=== PATIENT | female | born 1955 | race Caucasian/White ===

== ENCOUNTER 2017-07-04 20:41 | Emergency (ER) | payer OTHER ==
--- NOTE | 2017-07-04 20:51 | UC ---
UC Dental HPI - HPI Summary HPI Summary: 61 YEAR OLD FEMALE PRESENTS WITH COMPLAINS OF LEFT SIDED JAW/FACIAL SWELLING. - History of Current Complaint Stated Complaint: FACIAL PAIN/SWELLING LEFT SIDE Time Seen by Provider: 07/04/17 20:50 Hx Obtained From: Patient Onset/Duration: Sudden Onset, Lasting Days Severity: Moderate Pain Scale Used: 0-10 Numeric - 5 - Allergies/Home Medications Allergies/Adverse Reactions: Allergies Allergy/AdvReac Type Severity Reaction Status Date / Time Amoxicillin Allergy Rash Verified 07/04/17 20:54 Propoxyphene [From Darvon] Allergy Dizziness Verified 07/04/17 20:54 Home Medications: Home Medications Clindamycin Cap(NF) [Clindamycin Cap 300 mg Cap(NF)] 300 mg PO TID 07/04/17 [ History Confirmed 07/04/17] Ethosuximide CAP* [Zarontin CAP*] 250 mg PO DAILY 07/04/17 [History Confirmed ] Losartan TAB* [Cozaar TAB*] 25 mg PO DAILY 07/04/17 [History Confirmed 07/04/17] PHENobarbital TAB(*) 30 mg PO BEDTIME 07/04/17 [History Confirmed 07/04/17] PMH/Surg Hx/FS Hx/Imm Hx Previously Healthy: Yes Review of Systems Constitutional: Negative Skin: Negative Eyes: Negative ENT: Dental Pain Respiratory: Negative Cardiovascular: Negative Gastrointestinal: Negative Genitourinary: Negative Motor: Negative Neurovascular: Negative Musculoskeletal: Negative Neurological: Negative Psychological: Negative All Other Systems Reviewed And Are Negative: Yes Physical Exam Triage Information Reviewed: Yes Eye Exam: Normal ENT Exam: Normal Dental: Positive: Abscess @ Neck exam: Normal Neck: Positive: 1 Respiratory Exam: Normal Cardiovascular Exam: Normal Abdominal Exam: Normal Musculoskeletal Exam: Normal Neurological Exam: Normal Psychological Exam: Normal Skin Exam: Normal Dental Complaint Course/Dx - Differential Dx/Diagnosis Provider Diagnoses: DENTAL ABSCESS Discharge - Discharge Plan Condition: Stable Disposition: HOME Prescriptions: Chlorhexidine MW 0.12% 473ML* [Peridex Mouth Wash 0.12%*] 15 ml MT TID PC #1 btl Naproxen [Naprosyn 500 mg] 500 mg PO BID #30 tab Patient Education Materials: Dental Abscess (ED) Referrals: No Primary Care Phys,NOPCP [Primary Care Provider] -
[2017-07-04 20:54] VITALS: BP 130/79
[2017-07-04] MEDS ORDERED: DOXYcycline CAP(*) 100 MG PO ONE (21:10)
[2017-07-04] MEDS ORDERED: Naproxen TAB* 250 MG PO ONE (21:11)
== END 2017-07-04 21:33 | disposition home or self-care (01) ==
LOC: UCCORT 20:41
DX: K04.7 Periapical abscess without sinus (principal); Z88.1 Allergy status to other antibiotic agents
CPT/HCPCS: 99202; A9270-GY; G0463

== ENCOUNTER 2017-11-12 11:41 | Emergency (ER) | payer OTHER ==
--- NOTE | 2017-11-12 12:42 | UC ---
Respiratory Complaint HPI - HPI Summary HPI Summary: Subjective fever, cough with green sputum, history of COPD feels the the Bronchitis she gets a couple of times a year - History of Current Complaint Chief Complaint: UCRespiratory Stated Complaint: ST/COUGH Time Seen by Provider: 11/12/17 12:36 Hx Obtained From: Patient ?: No Onset/Duration: Gradual Onset, Lasting Days, Still Present Timing: Constant Severity Initially: Moderate Severity Currently: Moderate Character: Cough: Productive, Sputum Description: - green Aggravating Factors: Nothing Alleviating Factors: Nothing Associated Signs And Symptoms: Positive: Chills, URI, Nasal Congestion - Allergies/Home Medications Allergies/Adverse Reactions: Allergies Allergy/AdvReac Type Severity Reaction Status Date / Time Amoxicillin Allergy Rash Verified 11/12/17 12:16 Propoxyphene [From Darvon] Allergy Dizziness Verified 11/12/17 12:16 Home Medications: Home Medications Tiotropium CAP.INH* [Spiriva CAP.INH*] 1 inh DAILY 11/12/17 [History Confirmed 11/12/17] PMH/Surg Hx/FS Hx/Imm Hx Previously Healthy: No Cardiovascular History: Hypertension Respiratory History: COPD - Surgical History Surgical History: Yes Surgery Procedure, Year, and Place: tonsilectomy - Family History Known Family History: Positive: None - Social History Occupation: Employed Full-time Lives: With Family Alcohol Use: None Substance Use Type: None Smoking Status (MU): Former Smoker Type: Cigarettes Have You Smoked in the Last Year: No When Did the Patient Quit Smoking/Using Tobacco: 2013 - Immunization History Most Recent Influenza Vaccination: no Review of Systems Constitutional: Chills, Fatigue Skin: Negative Eyes: Negative ENT: Nasal Discharge Respiratory: Cough Cardiovascular: Negative Gastrointestinal: Negative Genitourinary: Negative Motor: Negative Neurovascular: Negative Musculoskeletal: Negative Neurological: Negative Psychological: Negative Is Patient Immunocompromised?: No All Other Systems Reviewed And Are Negative: Yes Physical Exam Triage Information Reviewed: Yes Appearance: Well-Nourished, Ill-Appearing - mild, Pain Distress - mild Vital Signs: Initial Vital Signs Temp 98.1 F 11/12/17 12:17 Pulse 107 11/12/17 12:17 Resp 16 11/12/17 12:17 BP 170/91 11/12/17 12:17 Pulse Ox 97 11/12/17 12:17 Vital Signs Reviewed: Yes Eye Exam: Normal Eyes: Positive: Conjunctiva Clear ENT Exam: Normal ENT: Positive: Normal ENT inspection, Hearing grossly normal, Pharynx normal, Nasal congestion, TMs normal, Uvula midline. Negative: Tonsillar swelling, Tonsillar exudate, Trismus, Muffled voice, Hoarse voice, Dental tenderness, Sinus tenderness Dental Exam: Normal Neck exam: Normal Neck: Positive: Supple, Nontender, No Lymphadenopathy Respiratory Exam: Normal Respiratory: Positive: Chest non-tender, Lungs clear, Normal breath sounds, No respiratory distress, No accessory muscle use Cardiovascular Exam: Normal Cardiovascular: Positive: RRR, No Murmur, Pulses Normal, Brisk Capillary Refill Musculoskeletal Exam: Normal Musculoskeletal: Positive: Strength Intact, ROM Intact, No Edema Neurological Exam: Normal Neurological: Positive: Alert, Muscle Tone Normal Psychological Exam: Normal Skin Exam: Normal UC Diagnostic Evaluation - Laboratory O2 Sat by Pulse Oximetry: 97 Respiratory Course/Dx - Course Course Of Treatment: zithromax, robitussin and codiene, tessalon, increase fluids, follow with pcp - Differential Dx/Diagnosis Provider Diagnoses: HYpertension in poor control, Bronchitis Discharge - Discharge Plan Condition: Stable Disposition: HOME Prescriptions: Albuterol HFA INHALER* [Ventolin HFA Inhaler*] 2 puff INH Q6H PRN #1 mdi PRN Reason: cough Azithromycin TAB* [Zithromax TAB (Z-CHARLENE) 250 mg #6 tabs] 2 tab PO .TODAY, THEN 1 DAILY #1 charlene Guaifenesin-Codeine [Guaiatussin AC] 5 - 10 syp PO QID #90 syp MDD 40ml Patient Education Materials: How to Use a Metered-Dose Inhaler (ED), Acute Bronchitis (ED), DASH Eating Plan (ED), Hypertension (ED) Forms: *Gen. Provider Communication, *Work Release Referrals: Areli Solo MD [Medical Doctor] -
[2017-11-12 13:11] VITALS: BP 172/85
== END 2017-11-12 13:10 | disposition home or self-care (01) ==
LOC: UCCORT 11:41
DX: I10 Essential (primary) hypertension (principal); J40 Bronchitis, not specified as acute or chronic; Z87.891 Personal history of nicotine dependence
CPT/HCPCS: 99212; G0463

== ENCOUNTER 2018-08-23 12:34 | Emergency (ER) | payer OTHER ==
[2018-08-23 12:54] VITALS: BP 151/95
[2018-08-23] MEDS ORDERED: Albuterol 2.5 MG/3 ML NEB.SOL* (0.083%) INH ONE (13:06)
--- NOTE | 2018-08-23 13:37 | RAD ---
INDICATION: Cough, dyspnea. COPD. Prior tobacco use. History of bronchitis. COMPARISON: No relevant prior exams available on the [facility] [place] [place] PACS for comparison. TECHNIQUE: Dual energy PA and routine lateral views of the chest were obtained. REPORT: Mild linear subsegmental atelectasis at the lung bases. Negative for pleural effusion or pneumothorax. The heart, pulmonary vasculature, and mediastinal contours are unremarkable. Mild thoracic degenerative spondylosis. IMPRESSION: #. Stigmata of obstructive lung disease. #. Very mild basilar atelectasis.
--- NOTE | 2018-08-24 08:40 | UC ---
- Progress Note Progress Note: Patient Name: JACQUELIN FOREMAN Medical Record#: [id number] Ordering Physician: Yousuf Lawson MD Acct.#: [id number] : 1955 Age: 62 Sex: F [place] [facility] [place]: 08/23/18 1306 ADM Status: REG ER Order Information: CHEST PA & LAT 2 VWS Accession Number: [id number] CPT: 60194 INDICATION: Cough, dyspnea. COPD. Prior tobacco use. History of bronchitis. COMPARISON: No relevant prior exams available on the [facility] [place] for comparison. TECHNIQUE: Dual energy PA and routine lateral views of the chest were obtained. REPORT: Mild linear subsegmental atelectasis at the lung bases. Negative for pleural effusion or pneumothorax. The heart, pulmonary vasculature, and mediastinal contours are unremarkable. Mild thoracic degenerative spondylosis. IMPRESSION: #. Stigmata of obstructive lung disease. #. Very mild basilar atelectasis. <Electronically signed by Veto Mason MD in OV> 08/23/181332 Dictated By: Veto Mason MD Dictated Date/Time: 08/23/181332 Transcribed Date/Time: 08/23/181331 Copy to: CC:Jolynn Mcgregor MD; Yousuf Lawson MD Imaging - [facility] Imaging [facility] Urgent [facility] [address] [address] ph ([phone]) ph ([phone]) ph ([phone]) This report is only to be considered final once signed by the Provider(s) as displayed in the "<Electronically Signed by >" field (s). Absence of a signature indicates the report is in a draft status and still needs to be finalized. In the event this document was created by someone other than the signing Provider, the individual initiating the document will be listed in the "Entered by:" or "Dictated by:" esparza. 1 of 1 Discharge - Sign-Out/Discharge Documenting (check all that apply): Post-Discharge Follow Up All imaging exams completed and their final reports reviewed: Yes - Discharge Plan Condition: Good Disposition: HOME Prescriptions: Azithromycin TAB* [Zithromax TAB (Z-CHARLENE) 250 mg #6 tabs] 2 tab PO .TODAY, THEN 1 DAILY #1 charlene Patient Education Materials: Acute Bronchitis (ED) Forms: *Work Release Referrals: Jolynn Mcgregor MD [Primary Care Provider] - - Billing Disposition and Condition Condition: GOOD Disposition: Home
== END 2018-08-23 13:59 | disposition home or self-care (01) ==
LOC: UCCORT 12:34
DX: J06.9 Acute upper respiratory infection, unspecified (principal); J44.9 Chronic obstructive pulmonary disease, unspecified; F32.9 Major depressive disorder, single episode, unspecified; Z88.0 Allergy status to penicillin; Z87.891 Personal history of nicotine dependence
CPT/HCPCS: 71046; 99212; G0463

== ENCOUNTER 2019-03-06 16:27 | Emergency (ER) | payer OTHER ==
[2019-03-06 16:45] VITALS: BP 154/100
--- NOTE | 2019-03-06 16:58 | ED ---
Respiratory - HPI Summary HPI Summary: 63 yr old female with the complaint of runny nose, itchy ears, sore throat, and coughing. She is concerned that she has pneumonia. She had onset of coughing and symptoms yesterday. No fever. SHe has COPD and has chronic shortness of breath. - History of Current Complaint Chief Complaint: UCRespiratory Stated Complaint: CONGESTION,LUNGS HURT,ST Time Seen by Provider: 03/06/19 16:46 Pain Intensity: 0 - Allergy/Home Medications Allergies/Adverse Reactions: Allergies Allergy/AdvReac Type Severity Reaction Status Date / Time amoxicillin Allergy Unknown Rash Verified 03/06/19 16:39 propoxyphene [From Darvon] Allergy Unknown dizzy Verified 03/06/19 16:39 PMH/Surg Hx/FS Hx/Imm Hx Cardiovascular History: Reports: Hx Hypertension Respiratory History: Reports: Hx Asthma, Hx Chronic Obstructive Pulmonary Disease (COPD) - Surgical History Surgery Procedure, Year, and Place: Tonsillectomy Infectious Disease History: No Infectious Disease History: Denies: Traveled Outside the [place] in Last 30 Days - Family History Known Family History: Positive: None - Social History Alcohol Use: None Substance Use Type: Reports: None Smoking Status (MU): Former Smoker Type: Cigarettes Length of Time of Smoking/Using Tobacco: 1 1/2 - 2 PPD x 40 Years Have You Smoked in the Last Year: No Review of Systems Constitutional: Negative Positive: Sore Throat, Ear Ache, Nasal Discharge Positive: Shortness Of Breath, Cough All Other Systems Reviewed And Are Negative: Yes Physical Exam Triage Information Reviewed: Yes Vital Signs On Initial Exam: Initial Vitals Temp Pulse Resp BP Pulse Ox 99.7 F 132 24 154/100 94 03/06/19 16:36 03/06/19 16:36 03/06/19 16:36 03/06/19 16:36 03/06/19 16:36 Vital Signs Reviewed: Yes Appearance: Positive: Well-Appearing, No Pain Distress Skin: Positive: Warm, Skin Color Reflects Adequate Perfusion Head/Face: Positive: Normal Head/Face Inspection Eyes: Positive: EOMI ENT: Positive: Pharynx normal, Nasal congestion, TM red - right. Negative: Muffled voice, Hoarse voice Neck: Positive: Supple, Nontender Respiratory/Lung Sounds: Positive: Clear to Auscultation, Breath Sounds Present Cardiovascular: Positive: RRR. Negative: Murmur Abdomen Description: Negative: Distended Musculoskeletal: Positive: Strength/ROM Intact Neurological: Positive: Sensory/Motor Intact, Alert, Oriented to Person Place, Time, CN Intact II-III, Normal Gait, Speech Normal Psychiatric: Positive: Normal - Louisa Coma Scale Best Eye Response: 4 - Spontaneous Best Motor Response: 6 - Obeys Commands Best Verbal Response: 5 - Oriented Coma Scale Total: 15 Diagnostics - Vital Signs Vital Signs Temp Pulse Resp BP Pulse Ox 03/06/19 16:36 99.7 F 132 24 154/100 94 - Laboratory Lab Statement: Any lab studies that have been ordered have been reviewed, and results considered in the medical decision making process. - Radiology chest xray pa lat Radiology Interpretation Completed By: Radiologist - ANNI Disposition - Course Course Of Treatment: 63 yr old with coughing, URI symptoms - Diagnoses Provider Diagnoses: Otitis media, Upper respiratory infection Discharge - Sign-Out/Discharge Documenting (check all that apply): Patient Departure All imaging exams completed and their final reports reviewed: Yes - Discharge Plan Condition: Good Disposition: HOME Prescriptions: Clarithromycin TAB* [Biaxin 500 MG TAB*] 500 mg PO BID #20 tab Patient Education Materials: Ear Infection (ED), Upper Respiratory Infection ( ED), Hypertension (ED) Referrals: No Primary Care Phys,NOPCP [Primary Care Provider] - [facility] [place] - 3 Days - Billing Disposition and Condition Condition: GOOD Disposition: Home
== END 2019-03-06 17:43 | disposition home or self-care (01) ==
LOC: UCCORT 16:27
DX: H66.90 Otitis media, unspecified, unspecified ear (principal); J06.9 Acute upper respiratory infection, unspecified; I10 Essential (primary) hypertension; J44.9 Chronic obstructive pulmonary disease, unspecified; Z87.891 Personal history of nicotine dependence; Z88.3 Allergy status to other anti-infective agents
CPT/HCPCS: 71046; 99212; G0463

== ENCOUNTER 2019-03-12 12:08 | Emergency (ER) | payer OTHER ==
[2019-03-12 12:51] VITALS: BP 140/94
--- NOTE | 2019-03-12 13:00 | UC ---
Ear Complaint HPI - HPI Summary HPI Summary: Patient presents to urgent care reporting progressive discomfort in the ears with popping in and site sound right worse than left. Patient was evaluated and treated for right otitis media on Saturday. Patient states she's been taking Biaxin and her symptoms are getting better. Patient states he started to get worse again on Saturday. Patient has not taken any [id number] medication. Patient states she feels a little congested sinuses but not bad. No fevers or chills. No nausea or vomiting. Patient states is not really the pain but the amplified sounds swelling about 1 AM provide sound. Patient is a former smoker. Patient's medications reviewed this visit - History of Current Complaint Chief Complaint: UCEar Stated Complaint: EAR PAIN Time Seen by Provider: 03/12/19 12:56 Hx Obtained From: Patient ?: No Severity Initially: Mild Severity Currently: Mild Pain Intensity: 0 Pain Scale Used: 0-10 Numeric - Allergies/Home Medications Allergies/Adverse Reactions: Allergies Allergy/AdvReac Type Severity Reaction Status Date / Time amoxicillin Allergy Unknown Rash Verified 03/12/19 12:47 propoxyphene [From Darvon] Allergy Unknown dizzy Verified 03/12/19 12:47 PMH/Surg Hx/FS Hx/Imm Hx Previously Healthy: Yes - Surgical History Surgical History: Yes Surgery Procedure, Year, and Place: Tonsillectomy - Family History Known Family History: Positive: Non-Contributory - Social History Lives: With Family Alcohol Use: None Substance Use Type: None Smoking Status (MU): Former Smoker Type: Cigarettes Length of Time of Smoking/Using Tobacco: 1 1/2 - 2 PPD x 40 Years Have You Smoked in the Last Year: No When Did the Patient Quit Smoking/Using Tobacco: 2013 - Immunization History Most Recent Influenza Vaccination: no Review of Systems All Other Systems Reviewed And Are Negative: Yes Constitutional: Positive: Negative Skin: Positive: Negative Eyes: Positive: Negative ENT: Positive: Ear Ache, Nasal Discharge Cardiovascular: Positive: Negative Gastrointestinal: Positive: Negative Physical Exam - Summary Physical Exam Summary: Vital Signs Reviewed: Yes A+Ox3, no distress Eyes: Conjunctiva Clear, JUSTIN. EOM intact and full ENT: Hearing grossly normal, mild fluid right ear mild erythema, left ear + scant fluid no erythema, turbinates ifndlammed , mmoist, uvula midline, no exudate, no erythema Neck: Positive: Supple, No LA Respiratory: Positive: No respiratory distress, No accessory muscle use + CTA throughout no w/r Cardiovascular: RRR nl s1, s2 no m/r CBT <2 sec abd soft + BS nt/nd no guarding, no distension Musculoskeletal Exam: WILL x 4 without difficulty Strength Intact, ROM Intact Neurological: Positive: Alert, + sensation throughout Psychological: Positive: Normal Response To Family Skin: Positive: no rash, no ecchymosis Triage Information Reviewed: Yes Vital Signs: Initial Vital Signs Temp 98.5 F 03/12/19 12:44 Pulse 79 03/12/19 12:44 Resp 18 03/12/19 12:44 BP 140/94 03/12/19 12:44 Pulse Ox 98 03/12/19 12:44 Ear Complaint Course/Dx - Course Course Of Treatment: Patient presents to urgent care for evaluation of her ears that are popping. Patient also reports magnified sound. Patient with some mild sinus congestion. Patient was evaluated and treated for otitis media approximately 6 days ago. Patient states pain has gotten better with the antibiotics but th the sound and congestion feeling is getting worse. Patient is not taking any over-the- counter medication. In the past patient has taken Flonase with good results. On exam vital signs are stable. Patient does have fluid bilaterally ear right more than left. Patient with some mild erythema in the right tympanic membrane. We'll start patient on Flonase as well as Claritin. We'll use decongestant with cautious patient with a history of hypertension. slighlty elevated BP reading today. Hydrate. Motrin Tylenol. Strict return precautions. Patient comfortable in agreement with plan. - Differential Dx/Diagnosis Provider Diagnosis: Otitis media, Congestion of both ears Discharge - Sign-Out/Discharge Documenting (check all that apply): Patient Departure All imaging exams completed and their final reports reviewed: No Studies - Discharge Plan Condition: Stable Disposition: HOME Prescriptions: Fluticasone NASAL SPRAY 50MCG* [Flonase NASAL SPRAY 50MCG*] 2 spray BOTH NARES DAILY #1 btl Loratadine [Allergy Relief] 10 mg PO DAILY #30 tablet Patient Education Materials: Ear Infection (ED) Referrals: No Primary Care Phys,NOPCP [Primary Care Provider] - Additional Instructions: As discussed, the doctor was treating you today thinks that your symptoms are related to fluid in your ears. The right ear that was infected last weeks appears to be markedly improved per the description of the provider last week. It's recommended that you finish antibiotics as previously prescribed. She been on antibiotics usually change her toothbrush in pillowcase. It is recommended that you use nasal spray once a day as prescribed. Is also recommended you take allergy medicine as prescribed. Stay well-hydrated. Contact her doctor to schedule follow-up appointment. - Billing Disposition and Condition Condition: STABLE Disposition: Home
== END 2019-03-12 13:20 | disposition home or self-care (01) ==
LOC: UCCORT 12:08
DX: H66.93 Otitis media, unspecified, bilateral (principal); H93.8X3 Other specified disorders of ear, bilateral; R09.81 Nasal congestion; R03.0 Elevated blood-pressure reading, without diagnosis of hypertension; R09.89 Other specified symptoms and signs involving the circulatory and respiratory systems; Z88.0 Allergy status to penicillin; Z88.5 Allergy status to narcotic agent; Z87.891 Personal history of nicotine dependence
CPT/HCPCS: 99212; G0463

== ENCOUNTER 2019-04-10 19:43 | Emergency (ER) | payer OTHER ==
[2019-04-10 20:05] VITALS: BP 173/94
--- NOTE | 2019-04-10 20:39 | UC ---
UC General HPI - HPI Summary HPI Summary: day 3 of sinus congestion, post nasal drip and ear pressure. throat irritation from post nasal drip. pt questioned about triage BP and states it always goes up with sickness. - History of Current Complaint Chief Complaint: UCGeneralIllness Stated Complaint: SINUS COMPLAINT Time Seen by Provider: 04/10/19 20:29 Hx Obtained From: Patient Hx Last Menstrual Period: N/A Onset/Duration: Gradual Onset Timing: Constant Pain Intensity: 0 Associated Signs & Symptoms: Positive: Cough. Negative: Chest Pain, Fever, SOB - Allergy/Home Medications Allergies/Adverse Reactions: Allergies Allergy/AdvReac Type Severity Reaction Status Date / Time amoxicillin Allergy Unknown Rash Verified 04/10/19 20:05 propoxyphene [From Darvon] Allergy Unknown dizzy Verified 04/10/19 20:05 PMH/Surg Hx/FS Hx/Imm Hx Cardiovascular History: Hypertension Respiratory History: COPD, Pneumonia Neurological History: Seizures - Surgical History Surgical History: Yes Surgery Procedure, Year, and Place: Tonsillectomy - Family History Known Family History: Positive: None, Non-Contributory - Social History Occupation: Employed Full-time Alcohol Use: None Substance Use Type: None Smoking Status (MU): Former Smoker Type: Cigarettes Length of Time of Smoking/Using Tobacco: 1 1/2 - 2 PPD x 40 Years Have You Smoked in the Last Year: No When Did the Patient Quit Smoking/Using Tobacco: 2013 - Immunization History Most Recent Influenza Vaccination: no Review of Systems All Other Systems Reviewed And Are Negative: Yes Constitutional: Negative: Fever ENT: Positive: Nasal Discharge, Sinus Congestion Respiratory: Positive: Cough Physical Exam Triage Information Reviewed: Yes Appearance: Well-Appearing Vital Signs: Initial Vital Signs Temp 99.2 F 04/10/19 20:00 Pulse 106 04/10/19 20:00 Resp 20 04/10/19 20:00 BP 173/94 04/10/19 20:00 Pulse Ox 96 04/10/19 20:00 Vital Signs Reviewed: Yes Eyes: Positive: Conjunctiva Clear ENT: Positive: Pharynx normal, Nasal congestion, Nasal drainage - clear, TMs normal. Negative: Sinus tenderness Neck: Positive: Supple, Nontender, No Lymphadenopathy Respiratory: Positive: No respiratory distress, Decreased breath sounds. Negative: Crackles, Rhonchi, Wheezing Cardiovascular: Positive: RRR, No Murmur. Negative: Tachycardia Abdomen Description: Positive: Nontender Musculoskeletal: Positive: ROM Intact Neurological: Positive: Alert Psychological: Positive: Age Appropriate Behavior Skin Exam: Normal Course/Dx - Differential Dx - Multi-Symptom Differential Diagnoses: Other - no fever, purulent drainage or sinus surgery. pt is non toxic. antibiotic not indicated. - Diagnoses Provider Diagnosis: URI (upper respiratory infection) Discharge - Sign-Out/Discharge Documenting (check all that apply): Patient Departure All imaging exams completed and their final reports reviewed: No Studies - Discharge Plan Condition: Stable Disposition: HOME Patient Education Materials: Upper Respiratory Infection (DC) Forms: *Work Release Referrals: Jolynn Mcgregor MD [Medical Doctor] - 5 Days - Billing Disposition and Condition Condition: STABLE Disposition: Home
== END 2019-04-10 20:46 | disposition home or self-care (01) ==
LOC: UCCORT 19:43
DX: J06.9 Acute upper respiratory infection, unspecified (principal); I10 Essential (primary) hypertension; J44.9 Chronic obstructive pulmonary disease, unspecified; Z88.0 Allergy status to penicillin; Z88.5 Allergy status to narcotic agent; Z87.891 Personal history of nicotine dependence
CPT/HCPCS: 99211; G0463

== ENCOUNTER 2019-04-18 14:40 | Emergency (ER) | payer OTHER ==
--- NOTE | 2019-04-18 14:59 | UC ---
General HPI - HPI Summary HPI Summary: pt is c/o a 10-14 day hx of worsening sinus congestion and ear pain. she now has a cough with chest congestion. she has chronic sob from her copd. she denies fever and chest pain. sputum is green. no relief with allergy medications. - History of Current Complaint Stated Complaint: CHEST CONGESTION Time Seen by Provider: 04/18/19 14:49 Hx Obtained From: Patient Hx Last Menstrual Period: N/A Onset/Duration: Gradual Onset Timing: Constant Associated Signs & Symptoms: Negative: Chest Pain - Allergy/Home Medications Allergies/Adverse Reactions: Allergies Allergy/AdvReac Type Severity Reaction Status Date / Time amoxicillin Allergy Unknown Rash Verified 04/18/19 14:51 propoxyphene [From Darvon] Allergy Unknown dizzy Verified 04/18/19 14:51 PMH/Surg Hx/FS Hx/Imm Hx Endocrine History: Hyperthyroidism Respiratory History: COPD, Pneumonia Neurological History: Seizures - Surgical History Surgical History: Yes Surgery Procedure, Year, and Place: Tonsillectomy - Family History Known Family History: Positive: None, Non-Contributory - Social History Occupation: Employed Full-time Alcohol Use: None Substance Use Type: None Smoking Status (MU): Former Smoker Type: Cigarettes Length of Time of Smoking/Using Tobacco: 1 1/2 - 2 PPD x 40 Years Have You Smoked in the Last Year: No When Did the Patient Quit Smoking/Using Tobacco: 2013 - Immunization History Most Recent Influenza Vaccination: no Review of Systems All Other Systems Reviewed And Are Negative: Yes Constitutional: Negative: Fever ENT: Positive: Ear Ache, Nasal Discharge, Sinus Congestion, Sinus Pain/ Tenderness Respiratory: Positive: Shortness Of Breath, Cough Cardiovascular: Negative: Palpitations, Chest Pain Physical Exam Triage Information Reviewed: Yes Appearance: Well-Appearing Vital Signs Reviewed: Yes Eyes: Positive: Conjunctiva Clear ENT: Positive: Pharynx normal, Nasal congestion, TMs normal, Sinus tenderness. Negative: Nasal drainage Neck: Positive: Supple, Nontender, No Lymphadenopathy Respiratory: Positive: No respiratory distress, Decreased breath sounds. Negative: Crackles, Rhonchi, Wheezing Cardiovascular: Positive: RRR, No Murmur Abdomen Description: Positive: Nontender Musculoskeletal: Positive: ROM Intact, No Edema Neurological: Positive: Alert Psychological: Positive: Age Appropriate Behavior Skin Exam: Normal Re-Evaluation - Re-Evaluation First Eval Re-Evaluation Time: 15:32 Change: Improved - better aertation. RA sat=93%. cough is now raising secretions. pt states she has had saturations that stay at 88% with her copd without being hospitalized. Course/Dx - Course Course Of Treatment: pt states unable to take steroids "they make me jittery" and "i can't sleep" - Differential Dx - Multi-Symptom Differential Diagnoses: Other - non toxic. improved with neb tx. no concern for pneumonia. appropriate for out patient tx. - Diagnoses Provider Diagnosis: Sinusitis, COPD exacerbation Discharge - Sign-Out/Discharge Documenting (check all that apply): Patient Departure All imaging exams completed and their final reports reviewed: No Studies - Discharge Plan Condition: Stable Disposition: HOME Prescriptions: Albuterol HFA INHALER* [Ventolin HFA Inhaler*] 2 puff INH Q6H #1 mdi DOXYcycline CAP(*) [DOXYcycline 100MG CAP(*)] 100 mg PO BID 10 Days #20 cap Patient Education Materials: Sinusitis (ED), COPD (Chronic Obstructive Pulmonary Disease) (ED) Referrals: Craig Garza MD [Medical Doctor] - 5 Days - Billing Disposition and Condition Condition: STABLE Disposition: Home
[2019-04-18 15:01] VITALS: BP 133/91
[2019-04-18] MEDS ORDERED: Albuterol 2.5 MG/3 ML NEB.SOL* (0.083%) INH ONE (15:11)
== END 2019-04-18 15:43 | disposition home or self-care (01) ==
LOC: UCCORT 14:40
DX: J32.9 Chronic sinusitis, unspecified (principal); J44.1 Chronic obstructive pulmonary disease with (acute) exacerbation; Z87.891 Personal history of nicotine dependence; Z88.0 Allergy status to penicillin
CPT/HCPCS: 99212; G0463

== ENCOUNTER 2019-10-17 09:54 | Emergency (ER) | payer OTHER ==
[2019-10-17 10:27] VITALS: BP 152/74
--- NOTE | 2019-10-17 10:30 | UC ---
Ear Complaint HPI - HPI Summary HPI Summary: 63 y/o female presents to the urgent care c/o Sinus congestion, pressure with chest congestion and coughing to the point of vomiting for the past week. B/L ear pain and pressure, R ear more so today. Pt is producing a yellowish phlegm. She used to be a heavy everyday smoker and quit 6 years ago. She has PMHX of COPD. Last night she developed mild wheezing. Pt has been using her inhalr w/o any improvement of symptoms. Pt denies fever, SOB, chest pain, dizziness, abdominal pain, N/V/D. - History of Current Complaint Chief Complaint: UCGeneralIllness Stated Complaint: EAR COMPLAINT,CONGESTION,CHEST TIGHTNESS Time Seen by Provider: 10/17/19 10:29 Hx Obtained From: Patient Hx Last Menstrual Period: N/A ?: No - menopausal Onset/Duration: Gradual Onset, Lasting Weeks - 1 week, Worse Since - last night w/ wheezing Severity Initially: Mild Severity Currently: Moderate Pain Intensity: 0 Pain Scale Used: 0-10 Numeric Aggravating Factors: Other - wheezing Alleviating Factors: OTC Meds Associated Signs/Symptoms: Positive: URI Symptoms - Allergies/Home Medications Allergies/Adverse Reactions: Allergies Allergy/AdvReac Type Severity Reaction Status Date / Time amoxicillin Allergy Unknown Rash Verified 10/17/19 10:27 propoxyphene [From Darvon] Allergy Unknown dizzy Verified 10/17/19 10:27 PMH/Surg Hx/FS Hx/Imm Hx Previously Healthy: Yes Cardiovascular History: Hypertension Respiratory History: COPD Neurological History: Seizures - Surgical History Surgical History: Yes Surgery Procedure, Year, and Place: Tonsillectomy - Family History Known Family History: Positive: Cardiac Disease, Hypertension - Social History Occupation: Unemployed Lives: With Family Alcohol Use: None Substance Use Type: None Smoking Status (MU): Former Smoker Type: Cigarettes Length of Time of Smoking/Using Tobacco: 1 1/2 - 2 PPD x 40 Years Have You Smoked in the Last Year: No When Did the Patient Quit Smoking/Using Tobacco: 2013 - Immunization History Most Recent Influenza Vaccination: no Review of Systems All Other Systems Reviewed And Are Negative: Yes Constitutional: Positive: Negative Skin: Positive: Negative Eyes: Positive: Negative ENT: Positive: Nasal Discharge - yellowish, Sinus Congestion, Sinus Pain/ Tenderness Respiratory: Positive: Cough - productive w/ yellowish phlegm, Other - wheezing Cardiovascular: Positive: Negative Gastrointestinal: Positive: Negative Genitourinary: Positive: Negative Motor: Positive: Negative Neurovascular: Positive: Negative Musculoskeletal: Positive: Negative Neurological: Positive: Negative Psychological: Positive: Negative Is Patient Immunocompromised?: No Physical Exam - Summary Physical Exam Summary: Vital Signs Reviewed: Yes General: well developed, well nourished old female sitting in the examining table w/o any apparent distress Eyes: Positive: Conjunctiva Clear - PERRLA, EOMI, fundi grossly normal ENT: Positive: Normal ENT inspection, Hearing grossly normal, Pharynx normal, Nasal congestion - edematous and erythematous nasal mucosa, Nasal drainage - yellowish drainage, TMs normal. Negative: Tonsillar swelling, Tonsillar exudate Neck: Positive: Supple, Nontender, No Lymphadenopathy Respiratory: no orthopnea or dyspnea. Able to speak in full sentences, no retractions or accessory muscle use, no tripod position, stridor, or head bobbing. Positive breath sounds bilaterally. diffuse scattered wheezing and rhonchi on b/L lungs, no crackles or rales. Cardiovascular: Positive: RRR, No Murmur, Pulses Normal, Brisk Capillary Refill Abdomen Description: Positive: Nontender, No Organomegaly, Soft. Negative: CVA Tenderness (R), CVA Tenderness (L) Bowel Sounds: Positive: Present Musculoskeletal Exam: Normal Musculoskeletal: Positive: Strength Intact, ROM Intact, No Edema Neurological Exam: Normal Psychological Exam: Normal Skin Exam: Normal Triage Information Reviewed: Yes Vital Signs: Initial Vital Signs Temp 99.3 F 10/17/19 10:23 Pulse 88 10/17/19 10:23 Resp 18 10/17/19 10:23 BP 152/74 10/17/19 10:23 Pulse Ox 93 10/17/19 10:23 Ear Complaint Course/Dx - Course Course Of Treatment: 63 y/o female presents to the urgent care c/o Sinus congestion, pressure with chest congestion and coughing to the point of vomiting for the past week. B/L ear pain and pressure, R ear more so today. Pt is producing a yellowish phlegm. She used to be a heavy everyday smoker and quit 6 years ago. She has PMHX of COPD. Last night she developed mild wheezing. Pt has been using her inhalr w/o any improvement of symptoms. Pt denies fever, SOB, chest pain, dizziness, abdominal pain, N/V/D. Hx obtained. Pt w/ B/L lungs scattered wheezing and rhonchi on examination. O2Sat:93% which is her normal as per patient. Pt w/ PMHX of asthma and heavy smoker in the past. Pt probably w/ a COPD exacerbation. Chest X-ray ordered: impression: no acute disease observed. Pt declined Prednisone PO since she states it makes her shaky. Pt given Duoneb treatment. Pt tolerated well medications and her lungs improved. Pt states feeling better. Pt will be tx w/ Rx Doxycycline PO , advise to take Tessalon tabs and inhalers she has at home to alleviate cough and wheezing. Strongly advised to f/u with her PCP for further management. She also has elevated BP today, advised to decrease salt in her diet and monitor BP, if it continues to be elevated to f/u with her PCP. Pt understood and agreed with D/C instructions and left the clinic hemodynamically stable. - Differential Dx/Diagnosis Differential Diagnosis/HQI/PQRI: Bronchitis, Cellulitis, Cerumen Impaction, Otitis Media, Perforated TM, Pharyngitis, URI, Other - sinusitis Provider Diagnosis: COPD exacerbation, Uncontrolled hypertension Discharge ED - Sign-Out/Discharge Documenting (check all that apply): Patient Departure - D/C home All imaging exams completed and their final reports reviewed: Yes - Discharge Plan Condition: Stable Disposition: HOME Prescriptions: DOXYcycline CAP(*) [DOXYcycline 100MG CAP(*)] 100 mg PO BID #20 cap Fluticasone NASAL SPRAY 50MCG* [Flonase NASAL SPRAY 50MCG*] 2 spray BOTH NARES DAILY #1 btl Patient Education Materials: COPD (Chronic Obstructive Pulmonary Disease) (ED) Forms: *Work Release Referrals: Lara Meyer PA [Primary Care Provider] - 3 Days Additional Instructions: 1-Please take full course of antibiotic to avoid resistance. Take yogurts w/ probiotics or culturelle to protect your GI system. 2-Take Tessalon PO tabs you have at home as directed and use your inhalers to alleviate cough and wheezing. Increase fluid intake, rest and eat well. 3- If symptoms do not improve or worsen or your develop SOB with fever and severe wheezing please go immediately to the ER further evaluation and treatment. 4- F/u with your PCP in 3 days for further management on your COPD 5- Your BP is elevated today. please decrease salt in your diet, monitor BP and if it continues to be elevated please f/u with your PCP in 3 days for further management. - Billing Disposition and Condition Condition: STABLE Disposition: Home
[2019-10-17] MEDS ORDERED: Albuterol/Ipratropium NEB.SOL* Albuterol 2.5 MG/Ipratropium 0.5 MG 3 ML INH ONE (10:39)
== END 2019-10-17 11:25 | disposition home or self-care (01) ==
LOC: UCCORT 09:54
DX: J44.1 Chronic obstructive pulmonary disease with (acute) exacerbation (principal); I10 Essential (primary) hypertension; H92.03 Otalgia, bilateral; R09.81 Nasal congestion; Z88.0 Allergy status to penicillin; Z88.5 Allergy status to narcotic agent; Z87.891 Personal history of nicotine dependence
CPT/HCPCS: 71046; 99212; A9270-GY; G0463